=== PATIENT | female | born 1960 | race Caucasian/White ===

== ENCOUNTER 2020-05-15 13:12 | Emergency (ER) | payer OTHER ==
[~2020-05-15] VITALS: Ht 172.7 cm; Wt 84.8 kg
[~2020-05-15 13:12] MED LIST: ATIVAN0.5 M1 PO; COMPAZINE10 MG PO; HYDROCODON-ACE1 EAC7 PO; ONDANSETRON HCL4 M2 PO; PYRIDIUM100 M1 PO; [UNRECOGNIZED DRUG - OTHER] IV; [UNRECOGNIZED DRUG - OTHER] IV
[2020-05-15 14:49] VITALS: BP 150/80
== END 2020-05-15 14:49 | disposition home or self-care (01) ==
LOC: M.ERS 13:12
DX: U07.1 COVID-19 (principal); Z90.49 Acquired absence of other specified parts of digestive tract; Z90.710 Acquired absence of both cervix and uterus

== ENCOUNTER 2020-05-22 15:39 | Emergency (ER) | payer OTHER ==
[~2020-05-22] VITALS: Ht 172.7 cm; Wt 81.7 kg
[2020-05-22] MEDS ORDERED: FEMARA2.5 MG PO (16:23)
[2020-05-22 16:24] LABS: ABSOLUTE LYMPHOCYTES 1.1 thou/uL (0.8-5.3); ABSOLUTE MONOCYTES 0.5 thou/uL (0.0-1.2); ABSOLUTE NEUTROPHILS 5.3 thou/uL (1.6-8.1); BASOPHILS 0.6 %; HEMATOCRIT 39.4 % (37.0-47.0); HEMOGLOBIN 13.7 gm/dL (12.0-15.0); LYMPHOCYTES 15.3 %; MCH 32.8 pg (26.0-34.0); MCHC 34.9 g/dL (28.0-37.0); MCV 94.1 fL (80.0-100.0); MONOCYTES 7.2 %; MPV 8.5 fl. (7.2-11.1); NUCLEATED RBCS 0 /100WBC; PLATELET COUNT* 149 thou/uL (150-400); POLYS 76.9 %; RBC 4.19 mil/uL (4.20-5.00); RDW-CV 14.6 % (10.5-14.5); WBC 6.9 thou/uL (4.0-11.0)
[2020-05-22 16:33] LABS: CALCIUM 8.7 mg/dL (8.5-10.1); CREATININE 1.2 mg/dL (0.6-1.3); POTASSIUM 3.5 mmol/L (3.5-5.1)
[2020-05-22 16:37] LABS: ALBUMIN 3.6 g/dL (3.4-5.0); TOTAL BILIRUBIN 0.7 mg/dL (<0.1-1.0); TOTAL PROTEIN 8.4 g/dL (6.4-8.2)
[2020-05-22] MEDS ORDERED: NORCO 5-325 TA1 EAC2 PO (16:58)
[2020-05-22] MEDS ORDERED: ZOFRAN ODT4 MG DISSOLVE (16:58)
[2020-05-22 17:50] VITALS: BP 127/59
== END 2020-05-22 18:00 | disposition home or self-care (01) ==
LOC: M.ERS 15:39
PROVIDERS: Emergency Medicine Emergency Medical Services
DX: U07.1 COVID-19 (principal); Z90.710 Acquired absence of both cervix and uterus; Z90.49 Acquired absence of other specified parts of digestive tract; Z90.5 Acquired absence of kidney; Z88.6 Allergy status to analgesic agent

== ENCOUNTER 2021-03-26 21:01 | Emergency (ER) | payer OTHER ==
[~2021-03-26] VITALS: Ht 172.7 cm; Wt 110.2 kg
[~2021-03-26 21:01] MED LIST changes: +FEMARA2.5 MG PO; +NORCO 5-325 TA1 EAC2 PO; +ZOFRAN ODT4 MG DISSOLVE
[2021-03-26 21:18] LABS: ICTOTEST (BILI CONFIRMATORY) Negative (Negative); URINE BILIRUBIN 1+ (Negative); URINE BLOOD NEGATIVE (Negative); URINE CLARITY HAZY; URINE COLOR YELLOW; URINE GLUCOSE-RANDOM NEGATIVE (Negative); URINE KETONES NEGATIVE (Negative); URINE LEUKOCYTES-REFLEX TRACE (Negative); URINE NITRITE-REFLEX NEGATIVE (Negative); URINE PROTEIN TRACE (Negative); URINE SPECIFIC GRAVITY >= 1.030 (1.005-1.030); URINE UROBILINOGEN 0.2 E.U./dl (0.2-1.0)
[2021-03-26 21:19] LABS: BACTERIA-REFLEX None Seen /HPF (None Seen); CASTS None Seen /LPF (None Seen); SQUAMOUS 0-3 Few /LPF (0-3); URINE RBC None Seen /HPF (0-2); URINE WBC-REFLEX 0-5 Rare /HPF (0-5)
[2021-03-26 21:20] LABS: CRYSTALS None Seen /LPF (None Seen)
[2021-03-26 21:45] LABS: ABSOLUTE BASOPHILS 0.2 thou/uL (0.0-0.2); ABSOLUTE EOSINOPHILS 0.1 thou/uL (0.0-0.7); ABSOLUTE LYMPHOCYTES 2.5 thou/uL (0.8-5.3); ABSOLUTE MONOCYTES 1.2 thou/uL (0.0-1.2); ABSOLUTE NEUTROPHILS 11.2 thou/uL (1.6-8.1); BASOPHILS 1.2 %; EOSINOPHILS 0.7 %; HEMATOCRIT 35.8 % (37.0-47.0); HEMOGLOBIN 12.5 gm/dL (12.0-15.0); LYMPHOCYTES 16.6 %; MCH 31.7 pg (26.0-34.0); MCHC 34.8 g/dL (28.0-37.0); MCV 91.3 fL (80.0-100.0); MONOCYTES 7.6 %; MPV 7.9 fl. (7.2-11.1); NUCLEATED RBCS 0 /100WBC; PLATELET COUNT* 515 thou/uL (150-400); POLYS 73.9 %; RBC 3.92 mil/uL (4.20-5.00); RDW-CV 14.4 % (10.5-14.5); WBC 15.2 thou/uL (4.0-11.0)
[2021-03-26 21:47] LABS: CALCIUM 9.8 mg/dL (8.5-10.1); CREATININE 1.3 mg/dL (0.6-1.3); POTASSIUM 3.8 mmol/L (3.5-5.1)
[2021-03-26 21:52] LABS: ALBUMIN 2.9 g/dL (3.4-5.0); TOTAL BILIRUBIN 0.5 mg/dL (<0.1-1.0); TOTAL PROTEIN 8.5 g/dL (6.4-8.2)
[2021-03-27 01:55] VITALS: BP 134/70
--- NOTE | 2021-03-27 10:29 | EKG ---
[place] [address] ELECTROCARDIOGRAM REPORT Name: JOSE ARMANDO RAYMOND Room: 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 03/27/21 1029 13 13 Leopoldo Small MD, [facility] /EPI
== END 2021-03-27 01:59 | disposition short-term general hospital (02) ==
LOC: M.ERS 21:01
PROVIDERS: Emergency Medicine
DX: R62.7 Adult failure to thrive (principal); Z68.36 Body mass index [BMI] 36.0-36.9, adult; Z20.822 Contact with and (suspected) exposure to COVID-19; R63.0 Anorexia; R11.2 Nausea with vomiting, unspecified; Z90.710 Acquired absence of both cervix and uterus; Z90.49 Acquired absence of other specified parts of digestive tract; Z88.5 Allergy status to narcotic agent; Z88.6 Allergy status to analgesic agent

== ENCOUNTER 2021-04-08 12:15 | Inpatient (IN) | payer OTHER ==
[~2021-04-08] VITALS: Ht 172.7 cm; Wt 101.2 kg
--- NOTE | ~2021-04-08 | PROC ---
[address] [address] PROCEDURE REPORT Name: JOSE ARMANDO RAYMOND Room: [address] IN ..#: [id number] Admission: 04/08/21 Attend Phys: Nat Jarquin MD Discharge: 04/14/21 Date of : 58 Report #: [id number] THIS REPORT FOR: cc: Katt Torres Stephanie P. DO [facility],Medical Records Staff ~ For GI report, please see the Provation report in Perceptive 7 content. By: [id number] Records Staff GANESH /ULYSSES
[2021-04-08 12:23] VITALS: BP 155/91
[2021-04-08 12:42] LABS: ABSOLUTE BASOPHILS 0.1 thou/uL (0.0-0.2); ABSOLUTE EOSINOPHILS 0.1 thou/uL (0.0-0.7); ABSOLUTE LYMPHOCYTES 2.5 thou/uL (0.8-5.3); ABSOLUTE MONOCYTES 0.8 thou/uL (0.0-1.2); ABSOLUTE NEUTROPHILS 5.9 thou/uL (1.6-8.1); BASOPHILS 0.9 %; EOSINOPHILS 0.9 %; HEMATOCRIT 37.4 % (37.0-47.0); HEMOGLOBIN 12.8 gm/dL (12.0-15.0); MCH 30.8 pg (26.0-34.0); MCHC 34.3 g/dL (28.0-37.0); MCV 89.8 fL (80.0-100.0); MONOCYTES 8.7 %; MPV 7.9 fl. (7.2-11.1); NUCLEATED RBCS 0 /100WBC; PLATELET COUNT* 349 thou/uL (150-400); POLYS 62.5 %; RBC 4.17 mil/uL (4.20-5.00); RDW-CV 14.4 % (10.5-14.5); WBC 9.4 thou/uL (4.0-11.0)
[2021-04-08 12:52] LABS: CALCIUM 9.6 mg/dL (8.5-10.1); CREATININE 1.4 mg/dL (0.6-1.3); POTASSIUM 3.8 mmol/L (3.5-5.1)
[2021-04-08 13:03] LABS: ALBUMIN 3.2 g/dL (3.4-5.0); TOTAL BILIRUBIN 0.4 mg/dL (<0.1-1.0); TOTAL PROTEIN 9.1 g/dL (6.4-8.2)
[2021-04-08 16:35] VITALS: BP 122/63
[2021-04-08 16:45] VITALS: BP 123/60
--- NOTE | 2021-04-08 19:10 | NUR ---
PATIENT ARRIVED TO UNIT AT APPROX. 1645. PATIENT IS A&OX4, PLEASANT AND COOPERATIVE WITH CARES. PATIENT ADMITTED FOR ARF, DEHYDRATION AND WEAKNESS. LEFT CHEST PORT A CATH ACCESSED IN ER AND FLUIDS RUNNING AT 250/HR PER ORDER. PATIENT DENIES ANY PAIN AT THIS TIME. 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 COLOSTOMY REVERSAL TO ILEOSTOMY SURGERY COMPLETED 03/14/21 AT . PATIENT UP AD KELLY IN ROOM. CALL LIGHT AND FREQUENTLY USED ITEMS WITHIN REACH.
[2021-04-08 20:05] VITALS: BP 120/62
--- NOTE | 2021-04-09 05:10 | NUR ---
PATIENT ALERT/ORIENTED X4; PLEASANT. PT WITH LT CHEST PAC WITH NS INFUSING PER ORDER X3 LITERS THEN DC'D. PT IS ON ROOM AIR; VITALS WNL. PT UP TO BATHROOM WITH STAND BY ASSIST TO VOID; DOES SELF CARE ON OSTOMY. PT DENIES PAIN/NAUSEA. PT GIVEN TOTAL OF TWO BENEDRYL FOR SLEEP. PT DENIES NEEDS AT THIS TIME. FREQUENTLY USED ITEMS AND CALL LIGHT WITHIN REACH. SIDERAILS UPX2. WILL CONTINUE TO MONITOR.
[2021-04-09 09:10] VITALS: BP 111/77
[2021-04-09 10:00] LABS: CREATININE 1.3 mg/dL (0.6-1.3); POTASSIUM 3.7 mmol/L (3.5-5.1)
--- NOTE | 2021-04-09 12:47 | EKG ---
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
[2021-04-09 14:19] LABS: URINE BILIRUBIN NEGATIVE (Negative); URINE BLOOD NEGATIVE (Negative); URINE CLARITY CLEAR; URINE COLOR YELLOW; URINE GLUCOSE-RANDOM NEGATIVE (Negative); URINE KETONES NEGATIVE (Negative); URINE LEUKOCYTES-REFLEX NEGATIVE (Negative); URINE NITRITE-REFLEX NEGATIVE (Negative); URINE PROTEIN NEGATIVE (Negative); URINE SPECIFIC GRAVITY >= 1.030 (1.005-1.030); URINE UROBILINOGEN 0.2 E.U./dl (0.2-1.0)
[2021-04-09 16:15] VITALS: BP 118/61
--- NOTE | 2021-04-09 18:41 | NUR ---
PATIENT HAS REMAINED A&OX4, PLEASANT AND COOPERATIVE WITH CARES THIS SHIFT. MEDICATIONS AND FLUIDS ADMINISTERED ORDERED. PATIENT HAS DENIED PAIN/N/V THIS SHIFT AND HAS EATEN A BIT OF ALL 3 MEALS. PATIENT HAS BEEN EMPTYING HER OWN ILEOSTOMY BAG AND NOTIFYING STAFF OF HOW MUCH EACH TIME. PATIENT HAS BEEN SITTING UP IN RECLINER MOST OF THE DAY AND IS UP AD KELLY IN HER ROOM. CALL LIGHT AND FREQUENTLY USED ITEMS WITHIN REACH.
[2021-04-09 20:16] VITALS: BP 141/80
--- NOTE | 2021-04-10 04:40 | NUR ---
PATIENT ALERT/ORIENTED X4, PLEASANT. FAMILY AT BEDSIDE AT BEGINNING OF SHIFT. PT WANTED SHOWER LATER IN EVENING BUT WAS TOO COLD AND DECIDED TO WASH UP INSTEAD. PT UP TO BATHROOM WITH SLOW STEADY GAIT; AT BEDSIDE DURING THE NIGHT. PT WITH FLUIDS INFUSING PER DR ORDER IN LT CHEST PAC. PT DENIES PAIN/NAUSEA. PT DOES SELF CARE ON OSTOMY AND PROVIDES STAFF WITH OUTPUT AMOUNTS. PT DENIES NEEDS AT THIS TIME. FREQUENTLY USED ITEMS AND CALL LIGHT WITHIN REACH. SIDERAILS UPX2. WILL CONTINUE TO MONITOR.
[2021-04-10 05:12] LABS: HEMATOCRIT 28.5 % (37.0-47.0); MCHC 34.4 g/dL (28.0-37.0); MCV 90.1 fL (80.0-100.0); MPV 8.3 fl. (7.2-11.1); RBC 3.16 mil/uL (4.20-5.00); RDW-CV 14.3 % (10.5-14.5); WBC 6.8 thou/uL (4.0-11.0)
[2021-04-10 05:26] LABS: HEMOGLOBIN 9.8 gm/dL (12.0-15.0)
[2021-04-10 05:34] LABS: ALBUMIN 2.4 g/dL (3.4-5.0); CALCIUM 8.4 mg/dL (8.5-10.1); CREATININE 1.1 mg/dL (0.6-1.3); MAGNESIUM 1.7 mg/dL (1.8-2.4); POTASSIUM 3.9 mmol/L (3.5-5.1); TOTAL BILIRUBIN 0.4 mg/dL (<0.1-1.0); TOTAL PROTEIN 6.4 g/dL (6.4-8.2)
[2021-04-10 08:17] VITALS: BP 113/62
--- NOTE | 2021-04-10 09:39 | NUR ---
Admission Assessment Admitted from home with spouse via private vehicle Mental Status upon admission Alert & Oriented x Living Arrangements: House-3 stairs to enter Lives with: or they live with patient spouse Support system: Name Phone number Relationship Naseem Calhoun [phone] spouse Evelyne Rossi RN Mgr Tele Dtr Can patient return to prior living arrangements? Yes No Notes: Activities of daily living: Independent since dc from 04/04/21 has been assisting her in ADLs as needed Assistive device: No Prior resource use: Home healthcare services-[facility] [phone] Chloe CORADO -states was not officially admit to yet, due to being admitted to hospital Notes: Does patient have a primary care provider? PCP Name Katt Laboy
[2021-04-10 16:00] VITALS: BP 116/68
--- NOTE | 2021-04-10 18:18 | NUR ---
PT A&Ox4. VITALS STABLE. CENTRAL LINE PATENT. UP AD KELLY. TOLERATING DIET. OSTOMY IS HAVING GOOD SOFT OUTPUT. DENIED PAIN. CALL LIGHT WITHIN REACH. WILL CONTINUE TO MONITOR.
[2021-04-10 20:17] VITALS: BP 123/61
[2021-04-11 05:23] LABS: HEMOGLOBIN 9.6 gm/dL (12.0-15.0); MCH 30.6 pg (26.0-34.0); MCHC 34.5 g/dL (28.0-37.0); MCV 88.8 fL (80.0-100.0); MPV 8.4 fl. (7.2-11.1); RBC 3.15 mil/uL (4.20-5.00); RDW-CV 14.9 % (10.5-14.5); WBC 5.7 thou/uL (4.0-11.0)
--- NOTE | 2021-04-11 05:55 | NUR ---
PATIENT SHOWERED AT BEGINNING OF SHIFT. PT DENIES PAIN/NAUSEA. PT UP TO BATHROOM WITH SLOW STEADY GAIT AND DOES SELF CARE ON OSTOMY. OSTOMY OUTPUT DURING THIS SHIFT APPROXIMATELY 250 LIGHT BROWN JELLY-LIKE STOOL. PT DENIES NEEDS AT THIS TIME. FREQUENTLY USED ITEMS AND CALL LIGHT WITHIN REACH. SIDERAILS UPX2. WILL CONTINUE TO MONITOR.
[2021-04-11 06:05] LABS: ALBUMIN 2.4 g/dL (3.4-5.0); CALCIUM 8.7 mg/dL (8.5-10.1); MAGNESIUM 1.8 mg/dL (1.8-2.4); POTASSIUM 3.6 mmol/L (3.5-5.1); TOTAL BILIRUBIN 0.5 mg/dL (<0.1-1.0); TOTAL PROTEIN 6.5 g/dL (6.4-8.2)
[2021-04-11 07:20] VITALS: BP 112/64
--- NOTE | 2021-04-11 13:22 | NUR ---
plan of care is for pt to remain hospitalize as pt's liver enzymes are elevated. d/c plan is to d/c with the resumption of critical access hospital.
[2021-04-11 16:42] VITALS: BP 125/71
--- NOTE | 2021-04-11 16:51 | NUR ---
PT REMAINED ALERT AND ORIENTED. PT RESTING IN BED. PT DENIES ANY PAIN. FALL RISK PRECAUTIONS IN PLACE. HOURLY ROUNDING COMPLETED. CALL LIGHT WITHIN REACH.
[2021-04-11 20:23] VITALS: BP 93/51
--- NOTE | 2021-04-12 05:17 | NUR ---
PT ALERT AND ORIENTED, ROOM AIR, UP AD KELLY. ILEOSTOMY STARTING TO PRODUCED SOME FORMED STOOL. MEASURING OUTPUT. NO REPORTS OF ANY PAIN OR NAUSEA. RECEIVED ALL MEDS SCHEDULED, DID NOT WANT SCHEDULED TYLENOL. TOOK ALL OTHER MEDS SCHEDULED. SHE HAS RESTED ALL NIGHT WITHOUT ANY ISSUES. ILEOSTOMY IN PLACE, ABDOMINAL INCISION CLEAN AND DRY, NO S/S OF INFECTION. WILL CONTINUE TO MONITOR.
[2021-04-12 05:55] LABS: HEMATOCRIT 28.3 % (37.0-47.0); HEMOGLOBIN 9.9 gm/dL (12.0-15.0); MCH 30.7 pg (26.0-34.0); MCHC 34.9 g/dL (28.0-37.0); MCV 88.1 fL (80.0-100.0); MPV 8.3 fl. (7.2-11.1); RBC 3.21 mil/uL (4.20-5.00); RDW-CV 14.5 % (10.5-14.5); WBC 4.9 thou/uL (4.0-11.0)
[2021-04-12 06:03] LABS: ALBUMIN 2.4 g/dL (3.4-5.0); CALCIUM 8.8 mg/dL (8.5-10.1); MAGNESIUM 1.7 mg/dL (1.8-2.4); POTASSIUM 3.5 mmol/L (3.5-5.1); TOTAL BILIRUBIN 0.5 mg/dL (<0.1-1.0); TOTAL PROTEIN 6.8 g/dL (6.4-8.2)
[2021-04-12 08:00] VITALS: BP 126/67
--- NOTE | 2021-04-12 14:42 | NUR ---
Anticipate dc to home tomorrow with [facility]. Pt's LFT elevated today, need to trend down prior to dc.
[2021-04-12 14:43] VITALS: BP 126/67
[2021-04-12 16:22] VITALS: BP 97/56
--- NOTE | 2021-04-12 17:47 | CON ---
[address] [address] CONSULTATION Name: JOSE ARMANDO RAYMOND Room: [address] IN .R.#: [id number] Admission: 04/08/21 Attend Phys: Nat Jarquin MD Discharge: Date of : 58 Report #: [id number] THIS REPORT FOR: cc: Katt Torres Stephanie P. DO Vardakis, Gregory DO ~ cc: Nat Jarquin MD, Katt Torres DO, [facility] DATE OF CONSULTATION: 04/09/2021 REFERRING PHYSICIAN: Nat Jarquin MD REASON FOR CONSULTATION: Nausea and anorexia with diarrhea. IMPRESSION: 1. Nausea and anorexia with diarrhea and high ileostomy output. 2. Dehydration secondary to #1. RECOMMENDATIONS: 1. The patient currently has a diverting ileostomy while her colorectal anastomosis heals. However, she has been having high ileostomy output causing her to have diarrhea, anorexia, weight loss and fatigue. We will need to begin her on some type of soluble fiber supplementation in the form of either Metamucil, psyllium, Konsyl, FiberCon or fiber gummies up to 4 times daily and add both Imodium and Colestid to help with the diarrhea due to her having the high ileostomy output plus her post-cholecystectomy state. 2. She will need to make sure that she stays in the hospital and remains well hydrated on this regimen before discharging her home since this is her second admission to the hospital for the same. 3. I have discussed these plans with the patient and she is agreeable to the same. I have also discussed these plans with her primary hospitalist, Dr. Jarquin. We will continue to follow her while she is in the hospital. HISTORY OF PRESENT ILLNESS: The patient is a 60-year-old white female with a very complicated medical history who was admitted to the hospital with complaints of severe anorexia, nausea, fatigue, and weight loss. She recently underwent surgery under the direction of by Dr. Nails at [facility] for takedown of a colostomy with reanastomosis and placement of a temporary ileostomy. She presented to the emergency room back in late February of this year with similar complaints and was transferred to [facility] for further treatment. She was in the hospital from 03/26 through 04/04 and apparently was doing fairly well, but then started having problems again with the same. She has been having problems. She had her surgery performed on 03/14 with plans for her to have a temporary ileostomy for about 6-8 weeks while her colorectal anastomosis heals. She has had some problems [place] [address] CONSULTATION Name: JOSE ARMANDO RAYMOND Room: [address] IN .R.#: [id number] Admission: 04/08/21 Attend Phys: Nat Jarquin MD Discharge: Date of : 58 Report #: [id number] ileostomy and this is causing some of her issues with weight loss, fatigue and the same. She is admitted to the hospital now for further evaluation and treatment. Just with hydration, the patient is already feeling better. Her ostomy output appears to be thickening up. She is not having any problems with dysphagia, odynophagia, vomiting, reflux or indigestion. She does not have any abdominal pain. Her ileostomy is working well. She denies any history of any problems related to her upper or lower GI tract and underwent a colonoscopy prior to having a colostomy, the colostomy takedown and this was apparently negative. This was performed at [facility]. Her history dates back actually to 03/2012 when she had a full hysterectomy with bilateral oophorectomy for uterine cancer. At that time, everything was good, so she did not have to have any adjuvant chemo or radiation therapy. 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 She states that in 2016, they saw that she possibly had an ovary and when Dr. Smiley, her oncologist, questioned her about whether or not she had her ovary taken out or not, it was found that she had not. In 2019, she was found to have ovarian cancer and was taken care of under the direction of Dr. Adwoa Cr. She underwent chemotherapy followed by surgery. She had extensive disease in the ovary and in 11/2019, she underwent surgery at [facility] including a left nephrectomy, part of her bladder and a portion of her colon with a temporary colostomy. She then underwent adjuvant chemotherapy until 01/2020 and has been found to be cancer free. For this reason, she was able to have takedown of her colostomy. She is being still followed by Oncology at [facility] and by Dr. Nails of Surgery. ALLERGIES: HER ALLERGIES ARE MORPHINE AND TRAMADOL. MEDICATIONS: At home include letrozole and [place]. PAST MEDICAL AND SURGICAL HISTORY: Remarkable for uterine cancer in the past as well as sarcoma and recently ovarian cancer. She also had a previous cholecystectomy, partial colectomy and partial bladder removal. SOCIAL HISTORY: The patient does not smoke or drink. FAMILY HISTORY: Negative. PHYSICAL EXAMINATION: GENERAL: Pleasant 60-year-old white female who is awake and alert. [address] [address] CONSULTATION Name: JOSE ARMANDO RAYMOND Shayy Room: [address] IN .R.#: [id number] Admission: 04/08/21 Attend Phys: Nat Jarquin MD Discharge: Date of : 58 Report #: [id number] CARDIOPULMONARY: Revealed a regular rate and rhythm. LUNGS: Clear. ABDOMEN: Soft. She has got well-healed scars over the midline and laparoscopic surgery scars from her previous cholecystectomy. She does not have any incisional hernia or any other issues. Her ileostomy in the right lower quadrant appears to be doing well. Her previous colostomy site looks good as well. LABORATORY DATA: From admission revealed a white count of 9.4, hemoglobin 12.8, platelet count 349,000, MCV is 89.8 and RDW is 14.4. Her lactic acid level was 3.2. It should be less than 2. Her sodium was 138, potassium 3.8, chloride 101, bicarb 25, BUN was 23, creatinine of 1.4 for GFR of only 38. Her total bilirubin 0.4, alkaline phosphatase 198, her AST was 55, ALT 74, albumin 3.2. With hydration, her BUN and creatinine are 17 and 1.3 respectively for GFR of 43. Blood cultures today have been negative. DIAGNOSTIC DATA: CT scan of the abdomen and pelvis revealed no evidence for bowel obstruction. Left kidney is surgically absent. There is no evidence of any masses, ascites, pneumoperitoneum or hemoperitoneum. An ileostomy was placed in the right lower quadrant. DISCUSSION: At the present time, we just need to get her on a medical regimen and keep everything formed, so she did not have this high ileostomy output. She states that she is supposed to get takedown of her ileostomy 6-8 weeks after her surgery, which was performed on 03/14. This is going to be scheduled at [facility] with Dr. Nails. We will see if we can get her by with what we got going on between high fiber diet, fiber supplementation, Imodium and Colestid and make further recommendations during her hospital course. I have discussed those plans with the patient and she is agreeable to the same. <ELECTRONICALLY SIGNED> By: Mikhail Mitchell DO 04/12/21 1747 1220 [id number] Mitchell DO /nt
--- NOTE | 2021-04-12 18:07 | NUR ---
PATIENT RESTING IN BED. PATIENT DENIES ANY PAIN. PATIENT HAD MRCP THIS AFTERNOON WITHOUT INCIDENT. PATIENT HAS POOR APPETITE. PATIENT TO BE NPO AFTER MIDNIGHT FOR EGD TOMORROW. PATIENT IS UP AD KELLY IN ROOM. PATIENT EMPTIES ILEOSTOMY. PATIENT DENIES ANY NEEDS AT THIS TIME. CALL LIGHT WITHINREACH.
[2021-04-12 20:20] VITALS: BP 131/67
[2021-04-13 02:06] LABS: HEPATITIS B SURFACE AG Negative (Negative)
--- NOTE | 2021-04-13 06:05 | NUR ---
Alert and oriented x 4. She is up to bathroom independently. Vitals are stable. Her MG+ was low after redraw so 2GM IV MG+ was given. Her portacath was difficult to draw from so lab may have to draw this mornings labs. She has had nothing by mouth since midnight but she did have a sip of water with her meds this am. She has not had anything for pain. Shehas slept well.
[2021-04-13 07:50] VITALS: BP 107/74
[2021-04-13 07:50] LABS: HEMATOCRIT 29.9 % (37.0-47.0); HEMOGLOBIN 10.5 gm/dL (12.0-15.0); MCH 31.1 pg (26.0-34.0); MCHC 35.2 g/dL (28.0-37.0); MCV 88.2 fL (80.0-100.0); MPV 7.8 fl. (7.2-11.1); RBC 3.39 mil/uL (4.20-5.00); RDW-CV 14.8 % (10.5-14.5); WBC 5.8 thou/uL (4.0-11.0)
[2021-04-13 08:08] LABS: ALBUMIN 2.5 g/dL (3.4-5.0); CALCIUM 8.6 mg/dL (8.5-10.1); CREATININE 0.9 mg/dL (0.6-1.3); MAGNESIUM 2.2 mg/dL (1.8-2.4); POTASSIUM 3.6 mmol/L (3.5-5.1); TOTAL BILIRUBIN 0.5 mg/dL (<0.1-1.0)
[2021-04-13 08:23] LABS: PROTIME 10.7 Seconds (9.20-11.50)
--- NOTE | 2021-04-13 13:01 | NUR ---
Pt having EGD and gastric emptying tomorrow, anticipate dc tomorrow to [facility] with [facility] .
[2021-04-13 16:12] LABS: CMV IgM Abs <30.0 AU/mL (0.0-29.9); EBNA-1 IgG >600.0 U/mL (0.0-17.9); EBV VCA IgM <36.0 U/mL (0.0-35.9)
[2021-04-13 16:50] VITALS: BP 116/73
--- NOTE | 2021-04-13 17:18 | NUR ---
PATIENT RESTING IN BED. PATIENT IS UP AD KELLY IN ROOM. PATIENT HAD EGD THIS AFTERNOON WITHOUT INCIDENT. PATIENT HAS FAIR TO POOR APPETITE. PATIENT DENIES ANY NAUSEA OR PAIN. PATIENT DENIES ANY NEEDS AT THIS TIME. CALL LIGHT WITHIN REACH.
[2021-04-13 20:40] VITALS: BP 118/56
[2021-04-13 21:06] LABS: IgG 1204 mg/dL (586-1602); IgM 78 mg/dL (26-217)
[2021-04-14 00:04] VITALS: BP 101/52
[2021-04-14 04:15] VITALS: BP 111/61
[2021-04-14 04:18] LABS: HEMATOCRIT 29.1 % (37.0-47.0); HEMOGLOBIN 10.1 gm/dL (12.0-15.0); MCHC 34.6 g/dL (28.0-37.0); MCV 89.6 fL (80.0-100.0); MPV 7.9 fl. (7.2-11.1); RBC 3.24 mil/uL (4.20-5.00); RDW-CV 14.9 % (10.5-14.5)
--- NOTE | 2021-04-14 04:50 | NUR ---
Alert and oriented x 4. Vitals are stable, roomair sat within normal limits. She denies nausea or pain. She is having adequate output from ileostomy, she states that it has decreased and that is not having to be frequently emptied. I spoke with the patient and her and they are in agreement to nt take the gastric emptying test today. I did tell the supervisor quality control that she was refusing the test. She has slept well this shift.
[2021-04-14 05:21] LABS: ALBUMIN 2.5 g/dL (3.4-5.0); CALCIUM 8.8 mg/dL (8.5-10.1); CREATININE 1.2 mg/dL (0.6-1.3); MAGNESIUM 2.1 mg/dL (1.8-2.4); POTASSIUM 3.7 mmol/L (3.5-5.1); TOTAL BILIRUBIN 0.3 mg/dL (<0.1-1.0); TOTAL PROTEIN 6.8 g/dL (6.4-8.2)
[2021-04-14 07:55] VITALS: BP 112/65
[2021-04-14] MEDS ORDERED: MEGESTROL ACETA40 MG PO (10:48)
[2021-04-14] MEDS ORDERED: PROTONIX40 M2 PO (10:48)
[2021-04-14] MEDS ORDERED: LOPERAMIDE 2 MG2 M1 PO (10:48)
--- NOTE | 2021-04-14 11:22 | NUR ---
Nutrition: Pt admitted with dehydration, weakness. She had hi-output ileostomy, poor appetite. She was given fluids. She stated she wasn't eating well for several days d/t dehydration, but she is feeling better and eating better now. She is anticipating eating lunch today. Wt: 223#. Alb 2.5, prealb 17.2. Pt agreed to try Ensure Clear, but she now has discharge orders. Pt wants to go home. She feels her appetite/intake will be improving now. Mild risk.
[2021-04-14] MEDS ORDERED: ZOFRAN ODT4 MG PO (13:37)
[2021-04-14] MEDS ORDERED: ATIVAN0.5 M1 PO (13:37)
[2021-04-14 13:54] VITALS: BP 126/67
[2021-04-14 17:02] VITALS: BP 126/67
[2021-04-14 21:06] LABS: ANA INTERPRETATION Negative (())
[2021-04-18 16:06] LABS: EBV EA IgG <9.0 U/mL (0.0-8.9)
== END 2021-04-14 15:00 | disposition home health service (06) | DRG 393 ==
LOC: M.ERS 12:15 → M.3W 12:56 → M.TBA-ER 12:56 → M.3W 16:45
PROVIDERS: Family Medicine; Internal Medicine Gastroenterology; ADMIT Internal Medicine; ATTEND Internal Medicine
PROC: 0DJ08ZZ Inspection of Upper Intestinal Tract, Via Natural or Artificial Opening Endoscopic (ICD-10-PCS; principal; 2021-04-13)
DX: K94.13 Enterostomy malfunction (principal); N17.0 Acute kidney failure with tubular necrosis; E86.0 Dehydration; R19.7 Diarrhea, unspecified; K76.0 Fatty (change of) liver, not elsewhere classified; Y82.8 Other medical devices associated with adverse incidents; Y83.8 Other surgical procedures as the cause of abnormal reaction of the patient, or of later complication, without mention of misadventure at the time of the procedure; Z20.822 Contact with and (suspected) exposure to COVID-19; Z90.710 Acquired absence of both cervix and uterus; Z85.43 Personal history of malignant neoplasm of ovary; Z79.899 Other long term (current) drug therapy; Z88.5 Allergy status to narcotic agent; Z88.8 Allergy status to other drugs, medicaments and biological substances; Y92.89 Other specified places as the place of occurrence of the external cause